=== PATIENT | female | born 1955 | race Caucasian/White ===

== ENCOUNTER 2023-12-28 14:37 | Emergency (ER) | payer BC, OTHER ==
[2023-12-28] MEDS ORDERED: ONDANSETRON 4 MG/2 ML VIAL ONE (16:12)
[2023-12-28 16:16] LABS: Absolute Basophils 0.1 K/uL (0-0.5); Absolute Eosinophils 0.1 K/uL (0-0.5); Absolute Lymphocytes (CBC) 1.4 K/uL (0.7-4.9); Absolute Monocytes 0.5 K/uL (0.1-1.3); Basophils % 0.5 % (0-1.3); Eosinophils % 0.7 % (0-4.4); Hematocrit 43.9 % (36.0-45.0); Lymphocytes % 12.7 % (15.3-44.8); MCH 30.9 pg (27.0-35.0); MCHC 34.3 g/dL (32.0-36.0); MCV 90.1 fL (80-100); MPV 7.9 fL (7.6-11.3); Monocytes % 4.3 % (3.3-12.3); Neutrophils % 81.8 % (41.7-73.7); Nucleated Red Blood Cells % 0.1 % (0-0); Platelets 218 thou/uL (152-406); RBC Red Blood Cell Count 4.87 M/uL (3.86-4.86); Red Cell Distribution Width 13.5 % (12.1-15.2)
[2023-12-28 16:32] LABS: Albumin 3.7 g/dL (3.4-5.0); Anion Gap 10.6 mEq/L (5.0-15.0); Bilirubin Total 0.3 mg/dL (0.2-1.0); Globulin 3.6 g/dL (2.3-3.5); Potassium 3.6 mEq/L (3.5-5.1); Protein, Total 7.3 g/dL (6.4-8.2)
--- NOTE | 2023-12-28 18:07 | RAD REPORT ---
EXAMINATION: CT ABDOMEN AND PELVIS WITH CONTRAST CLINICAL INDICATION: Female, 68 years old. [facility] MAIN GI bleed;Nausea / vomiting IV ONLY Bed Name: 16 TECHNIQUE: CT abdomen and pelvis was performed, after the administration of IV contrast, [facility]. Axial, sagittal and coronal reconstructions were obtained. One or more of the following dose reduction techniques were used: Automated exposure control, adjustment of the mA and k V according to patient size, and iterative reconstruction. Unless otherwise specified, incidental findings do not require dedicated imaging follow-up. COMPARISON: No prior exam. FINDINGS: LOWER CHEST: The visualized lung bases are clear. Right posterior diaphragmatic eventration. LIVER: Normal in size and contour. No focal lesion. BILIARY SYSTEM: No suspicious abnormalities. SPLEEN: Normal size. No focal lesion. PANCREAS: No mass, ductal dilation, or chanel-pancreatic fluid. ADRENALS: Normal; no mass. KIDNEYS: Normal size and contour. No hydronephrosis. URINARY BLADDER: Decompressed limiting evaluation. GASTROINTESTINAL TRACT: No evidence of free air, significant intra-abdominal free fluid, bowel obstru ction or abscess. Small lipoma at the junction of second and third parts of the duodenum. Nonspecific fluid opacification of nondistended distal small bowel, extending through the proximal ti edinson with transverse colon. Mild sigmoid diverticulosis. APPENDIX: Normal appendix. LYMPH NODES: No lymphadenopathy. MUSCULOSKELETAL: No acute or suspicious osseous abnormality. ADDITIONAL FINDINGS: Small umbilical lipoma containing fat. IMPRESSION: Nonspecific fluid opacification of nondistended distal small bowel, extending through the proximal ti edinson with transverse colon, may suggest diarrheal state or enterocolitis.
--- NOTE | 2023-12-28 18:32 | EDPHYS ---
Physician Documentation [facility] Name: Delores Blunt Age: 68 yrs Sex: Female : 1955 Arrival Date: 12/28/2023 Time: 14:37 Bed 16 Private MD: ED Physician Keshawn Alves HPI: 12/27 15:37 This 68 yrs old Female presents to ER via Ambulatory with complaints of Rectal Bleeding.pm1 15:37 The patient presents to the emergency department with bleeding from the rectum/anus. pm1 Onset: The symptoms/episode began/occurred today. Context: the patient has no known special context relating to the rectal area complaint(s). Modifying factors: The symptoms are aggravated by bowel movement, and wiping. Associate signs and symptoms: Pertinent negatives: abdominal pain, diarrhea, fever, vomiting. The patient has experienced a previous episode, many years ago, rectal bleeding with colon polyp. The patient has not recently seen a physician. Historical: - Allergies: 14:52 No Known Allergies; db - PMHx: 14:52 Hypertensive disorder; db - Immunization history:: Adult Immunizations unknown. - Infectious Disease History:: Denies. - Social history:: Smoking status: Patient reports the use of cigarette tobacco products, smokes one pack cigarettes per day. ROS: 15:37 Constitutional: Negative for fever, chills, and weight loss, Cardiovascular: Negative pm1 for chest pain, palpitations, and edema, Respiratory: Negative for shortness of breath, cough, wheezing, and pleuritic chest pain, 15:37 Back: Negative for injury and pain, MS/Extremity: Negative for injury and deformity, Skin: Negative for injury, rash, and discoloration, Neuro: Negative for headache, weakness, numbness, tingling, and seizure, 15:37 Abdomen/GI: Positive for rectal bleeding, Negative for abdominal pain, nausea, vomiting, and diarrhea, constipation, black/tarry stool, 15:37 All other systems are negative, Exam: 15:37 Abdomen/GI: Rectal exam: hemorrhoid(s), external, with associated bleeding, with pm1 inflammation, with pain, without thrombosis, Mery ORTIZ, 15:37 Constitutional: This is a well developed, well nourished patient who is awake, alert, pm1 and in no acute distress. 15:37 Back: No spinal tenderness. No costovertebral tenderness. Full range of motion. Skin: Warm, dry with normal turgor. Normal color with no rashes, no lesions, and no evidence of cellulitis. MS/ Extremity: Pulses equal, no cyanosis. Neurovascular intact. Full, normal range of motion. 15:37 Cardiovascular: Exam negative for acute changes, 15:37 Respiratory: Exam negative for acute changes, the patient does not display signs of respiratory distress, 15:37 Abdomen/GI: Inspection: abdomen appears normal, Palpation: abdomen is soft and non-tender, in all quadrants, 15:37 Neuro: Exam negative for acute changes, Orientation: is normal, Mentation: is normal, Motor: is normal, moves all fours, Vital Signs: 14:50 BP 151 / 82; Pulse 96; Resp 16; Temp 98.2; Pulse Ox 98% ; Weight 99.79 kg; Height 5 ft. db 4 in. ; Pain 0/10; 14:50 Body Mass Index 37.76 (99.79 kg, 162.56 cm) db 14:50 Pain Scale: Adult db MDM: 15:03 Patient medically screened. pm1 16:23 ED course: Patient with nausea, vomiting, and diarrhea after evaluation of her pm1 hemorrhoid. Will order labs and CT imaging. 18:30 Data reviewed: vital signs. pm1 18:30 Counseling: I had a detailed discussion with the patient and/or guardian regarding the pm1 historical points, exam findings, and any diagnostic results supporting the discharge/admit diagnosis, lab results, radiology results, the need for outpatient follow up, a general surgeon, a nurses supervisor, to return to the emergency department if symptoms worsen or persist or if there are any questions or concerns that arise at home. 12/27 15:37 Order name: CBC with Diff; Complete Time: 16:23 pm1 12/27 15:37 Order name: CMP; Complete Time: 16:42 pm1 12/27 15:37 Order name: Lipase; Complete Time: 16:42 pm1 12/27 15:59 Order name: Abdomen ; Complete Time: 18:22 EDMS 12/27 15:37 Order name: IV Saline Lock; Complete Time: 16:11 pm1 12/27 15:37 Order name: Labs collected and sent; Complete Time: 16:11 pm1 Administered Medications: 16:19 Drug: Ondansetron IVP 4 mg IVP once; over 2 minutes Route: IVP; Site: left antecubital; iw Disposition Summary: 12/28/23 18:32 Discharge Ordered Notes: Location: Home pm1 Problem: new pm1 Symptoms: have improved pm1 Condition: Stable pm1 Diagnosis - Unspecified hemorrhoids pm1 - Nausea with vomiting, unspecified pm1 - Diarrhea, unspecified pm1 Followup: pm1 - With: Emergency Department - When: As needed - Reason: Worsening of condition Followup: pm1 - With: Private Physician - When: 2 - 3 days - Reason: Recheck today's complaints, Continuance of care, Re-evaluation by your physician Discharge Instructions: - Discharge Summary Sheet pm1 - Food Choices to Help Relieve Diarrhea, Adult pm1 - Diarrhea, Adult pm1 - Hemorrhoids pm1 - Nausea and Vomiting, Adult pm1 Forms: - Medication Reconciliation Form pm1 - Antibiotic Education pm1 - Prescription Opioid Use pm1 - Patient Portal Instructions pm1 - Leadership Thank You Letter pm1 Prescriptions: - Zofran 4 mg Oral tablet - take 1 tablet ORAL route every 8 hours As needed; 6 tablet; Refills: 0, Product pm1 Selection Permitted Signatures: Dispatcher [employer] EDMery Mccann RN RN iw Herminio Quick NP PROJECT CONTROL MANAGER pm1 Chana Hurtado RN RN db Corrections: (The following items were deleted from the chart) 15:37 15:37 Abdomen W/ Con+CT.RAD.BRZ ordered. EDMS EDMS
--- NOTE | 2023-12-28 18:32 | ER ---
Nurse's Notes [facility] Name: Delores Blunt Age: 68 yrs Sex: Female : 1955 Arrival Date: 12/28/2023 Time: 14:37 Bed 16 Private MD: Diagnosis: Unspecified hemorrhoids;Nausea with vomiting, unspecified;Diarrhea, unspecified Presentation: 12/27 14:47 Chief complaint: Chief complaint: Patient states: RECTAL BLEEDING STARTED THIS AM. db STARTED WITH PINK SPOT NOW HAS BLOOD CLOTS AND BLEEDING THROUGH CLOTHES. DENIES PAIN. DENIES BLACK STOOLS. DENIES RECENT CONSTIPATION. 14:50 Coronavirus screen: Client denies travel out of the [place] in the last 14 days. At this db time, the client does not indicate any symptoms associated with coronavirus-19. Ebola Screen: Patient negative for fever greater than or equal to 101.5 degrees Fahrenheit, and additional compatible Ebola Virus Disease symptoms Patient denies exposure to infectious person. Patient denies travel to an Ebola-affected area in the 21 days before illness onset. No symptoms or risks identified at this time. Initial Sepsis Screen: Does the patient meet any 2 criteria? No. Patient's initial sepsis screen is negative. Does the patient have a suspected source of infection? No. Patient's initial sepsis screen is negative. Risk Assessment: Do you want to hurt yourself or someone else? Patient reports no desire to harm self or others. Onset of symptoms was December 28, 2023. 14:50 Method Of Arrival: Ambulatory db 14:50 Acuity: CYNDY 3 db Triage Assessment: 14:52 General: Appears in no apparent distress. comfortable, Behavior is calm, cooperative, db appropriate for age. Pain: Complains of pain in buttocks and abdomen. Neuro: Level of Consciousness is awake, alert, obeys commands, Oriented to person, place, time, situation, Appropriate for age. Respiratory: Airway is patent Respiratory effort is even, unlabored, Respiratory pattern is regular, symmetrical. GI: Reports bloody stool. Historical: - Allergies: 14:52 No Known Allergies; db - PMHx: 14:52 Hypertensive disorder; db - Immunization history:: Adult Immunizations unknown. - Infectious Disease History:: Denies. - Social history:: Smoking status: Patient reports the use of cigarette tobacco products, smokes one pack cigarettes per day. Screenin:16 [facility] ED Fall Risk Assessment (Adult) History of falling in the last 3 months, iw including since admission No falls in past 3 months (0 pts) Confusion or Disorientation No (0 pts) Intoxicated or Sedated No (0 pts) Impaired Gait No (0 pts) Mobility Assist Device Used No (0 pt) Altered Elimination No (0 pt) Score/Fall Risk Level 0 - 2 = Low Risk Oriented to surroundings, Maintained a safe environment. Abuse screen: Denies injuries from another. Nutritional screening: No deficits noted. Tuberculosis screening: No symptoms or risk factors identified. Assessment: 15:15 General: Appears in no apparent distress. Behavior is calm, cooperative, appropriate iw for age. Neuro: Level of Consciousness is awake, alert, obeys commands. Cardiovascular: Patient's skin is warm and dry. Respiratory: Respiratory effort is even, unlabored, Respiratory pattern is. GI: Abdomen is non-distended, Reports rectal bleeding. Derm: Skin is intact, is healthy with good turgor. Musculoskeletal: Range of motion: intact in all extremities. 17:59 Reassessment: Patient appears in no apparent distress at this time. Patient and/or iw family updated on plan of care and expected duration. Pain level reassessed. Patient is alert, oriented x 3, equal unlabored respirations, skin warm/dry/pink. Vital Signs: 14:50 BP 151 / 82; Pulse 96; Resp 16; Temp 98.2; Pulse Ox 98% ; Weight 99.79 kg; Height 5 ft. db 4 in. ; Pain 0/10; 14:50 Body Mass Index 37.76 (99.79 kg, 162.56 cm) db 14:50 Pain Scale: Adult db ED Course: 14:41 Patient arrived in ED. im 14:52 Triage completed. db 14:53 Arm band placed on right wrist. Patient placed in an exam room. db 15:03 Herminio Quick NP is PHCP. pm1 15:03 Keshawn Alves MD is Attending Physician. pm1 15:10 Mery Roa, ANGEL is Primary Nurse. iw 16:11 Initial lab(s) drawn, by me, sent to lab. Inserted saline lock: 22 gauge in left iw antecubital area, using aseptic technique. Blood collected. Flushed with 10 mL NS. 17:07 Abdomen In Process Unspecified. EDMS Administered Medications: 16:19 Drug: Ondansetron IVP 4 mg IVP once; over 2 minutes Route: IVP; Site: left antecubital; iw Medication: 15:16 VIS not applicable for this client. iw Outcome: 18:32 Discharge ordered by . pm1 18:44 Patient left the ED. iw Signatures: Dispatcher [employer] EDMS Mery Roa RN RN iw Herminio Quick NP CARD FEEDER pm1 Chana Hurtado RN RN db Mendoza, Itzel im Corrections: (The following items were deleted from the chart) 14:52 14:47 Chief complaint: db betito
[2023-12-28 19:22] VITALS: BP 151/82; TEMP 98.2; O2SAT 98
== END 2023-12-28 18:44 | disposition home or self-care (01) ==
LOC: ER 14:37
DX: K64.9 Unspecified hemorrhoids (principal); R11.2 Nausea with vomiting, unspecified; R19.7 Diarrhea, unspecified; F17.210 Nicotine dependence, cigarettes, uncomplicated
CPT/HCPCS: 85025; 36415; 83690; 80053; 74177; Q9967; 96374; 99284; J2405